=== PATIENT | female | born 1940 | race Caucasian/White ===

== ENCOUNTER → 2016-08-03 | Outpatient (CLI) | payer MEDICARE, BC ==
--- NOTE | 2016-08-03 13:42 | KCIC ---
Left lower extremity venous doppler ultrasound Indication: Left calf pain. . Technique: Color Doppler, grayscale, duplex, spectral waveform analysis is used to evaluate the lower extremity deep venous system, including the common femoral vein, superficial femoral vein, popliteal vein, tibioperoneal trunk and calf veins. Findings: No evidence of deep venous thrombosis. Normal response to augmentation, normal compressibility and normal phasicity is demonstrated. Impression: Negative for deep venous thrombosis Electronically signed by: Víctor Mejia MD (08/03/2016 1:39 PM)
== END | disposition home or self-care (01) ==
LOC: KCIC US 12:49
PROVIDERS: ATTEND Emergency Medicine
DX: M79.605 Pain in left leg (principal); M79.89 Other specified soft tissue disorders
CPT/HCPCS: 93971

== ENCOUNTER 2019-03-17 15:18 | Emergency (ER) | payer MEDICARE, BC ==
[~2019-03-17] VITALS: Ht 160 cm; Wt 98.0 kg
[2019-03-17] MEDS ORDERED: DICYCLOMINE HCL 10 MG CAPSULE PO STA (15:38)
--- NOTE | 2019-03-17 15:41 | PHYS DOC ---
Adult General Chief Complaint Chief Complaint: ABDOMINAL PAIN HPI HPI Patient is a 78 year old female who presents with vomiting, nausea, diarrhea this been ongoing since 1:30 AM. The patient states that she's not had an appetite all day long. The patient's last night for dinner that she had beef stew. The patient states everybody had this stew got sick. She also states she has associated symptoms include abdominal cramping. The patient rates her pain 5 out of 10 in severity and sharp. Denies any other complaints. Complete ROS were reviewed and found to be within normal limits, except as documented in the HPI Current Medications Current Medications Current Medications Medications (Trade) Dose Ordered Sig/Odilon Start Time Stop Time Status Last Admin Dose Admin Dicyclomine HCl (Bentyl) 10 mg 1X STAT 03/17/19 15:38 03/17/19 15:46 DC 03/17/19 16:37 10 MG Ondansetron HCl (Zofran) 4 mg 1X ONCE 03/17/19 15:45 03/17/19 15:46 DC 03/17/19 16:36 4 MG Sodium Chloride 1,000 ml @ 1,000 mls/hr 1X ONCE 03/17/19 15:45 03/17/19 16:44 DC 03/17/19 16:37 1,000 MLS/HR Allergies Allergies Allergies Coded Allergies Type Severity Reaction Last Updated Verified Penicillins Allergy Unknown 03/17/19 Yes hydrocodone Allergy Unknown 03/17/19 Yes Physical Exam Physical Exam Constitutional: Well developed, well nourished, no acute distress, non-toxic appearance. [] HENT: Normocephalic, atraumatic, bilateral external ears normal, oropharynx moist, no oral exudates, nose normal. [] Eyes: PERRLA, EOMI, conjunctiva normal, no discharge. [] Neck: Normal range of motion, no tenderness, supple, no stridor. [] Cardiovascular:Heart rate regular rhythm, no murmur [] Lungs & Thorax: Bilateral breath sounds clear to auscultation [] Abdomen: Bowel sounds normal, soft, no tenderness, no masses, no pulsatile masses. [] Skin: Warm, dry, no erythema, no rash. [] Neurologic: Alert and oriented X 3, normal motor function, normal sensory function, no focal deficits noted. [] Psychologic: Affect normal, judgement normal, mood normal. [] Current Patient Data Vital Signs Vital Signs Date Time Temp Pulse Resp B/P (MAP) Pulse Ox O2 Delivery O2 Flow Rate FiO2 03/17/19 17:53 66 24 139/84 (102) Room Air 03/17/19 17:33 98 03/17/19 15:30 98.7 98.7 Lab Values Laboratory Tests Test 03/17/19 15:35 White Blood Count 8.0 x10^3/uL (4.0-11.0) Red Blood Count 4.18 x10^6/uL (3.50-5.40) Hemoglobin 13.3 g/dL (12.0-15.5) Hematocrit 39.3 % (36.0-47.0) Mean Corpuscular Volume 94 fL (79-100) Mean Corpuscular Hemoglobin 32 pg (25-35) Mean Corpuscular Hemoglobin Concent 34 g/dL (31-37) Red Cell Distribution Width 12.9 % (11.5-14.5) Platelet Count 154 x10^3/uL (140-400) Neutrophils (%) (Auto) 85 % (31-73) H Lymphocytes (%) (Auto) 7 % (24-48) L Monocytes (%) (Auto) 6 % (0-9) Eosinophils (%) (Auto) 1 % (0-3) Basophils (%) (Auto) 0 % (0-3) Neutrophils # (Auto) 6.8 x10^3/uL (1.8-7.7) Lymphocytes # (Auto) 0.5 x10^3/uL (1.0-4.8) L Monocytes # (Auto) 0.5 x10^3/uL (0.0-1.1) Eosinophils # (Auto) 0.1 x10^3/uL (0.0-0.7) Basophils # (Auto) 0.0 x10^3/uL (0.0-0.2) Segmented Neutrophils % 72 % (35-66) H Band Neutrophils % 11 % (0-9) H Lymphocytes % 11 % (24-48) L Monocytes % 5 % (0-10) Eosinophils % 1 % (0-5) Platelet Estimate Adequate (ADEQUATE) Sodium Level 141 mmol/L (136-145) Potassium Level 4.1 mmol/L (3.5-5.1) Chloride Level 106 mmol/L (98-107) Carbon Dioxide Level 23 mmol/L (21-32) Anion Gap 12 (6-14) Blood Urea Nitrogen 29 mg/dL (7-20) H Creatinine 0.9 mg/dL (0.6-1.0) Estimated GFR (Cockcroft-Gault) 60.9 BUN/Creatinine Ratio 32 (6-20) H Glucose Level 124 mg/dL (70-99) H Calcium Level 8.6 mg/dL (8.5-10.1) Total Bilirubin 0.5 mg/dL (0.2-1.0) Aspartate Amino Transferase (AST) 21 U/L (15-37) Alanine Aminotransferase (ALT) 19 U/L (14-59) Alkaline Phosphatase 72 U/L (46-116) Total Protein 7.6 g/dL (6.4-8.2) Albumin 3.9 g/dL (3.4-5.0) Albumin/Globulin Ratio 1.1 (1.0-1.7) Laboratory Tests 03/17/19 15:35 Laboratory Tests 03/17/19 15:35 EKG EKG [] Radiology/Procedures Radiology/Procedures [] Course & Med Decision Making Course & Med Decision Making Pertinent Labs and Imaging studies reviewed. (See chart for details) Will get labs, and give supportive care. Labs were unremarkable. Patient appears to have food poisoning. Patient feels better after fluids and nausea medications. Will d/c home. Dragon Disclaimer Dragon Disclaimer This electronic medical record was generated, in whole or in part, using a voice recognition dictation system. Departure Departure Impression: Primary Impression: Nausea & vomiting Additional Impression: Diarrhea Disposition: HOME, SELF-CARE Condition: STABLE Referrals: UNKNOWN PCP NAME (PCP) Patient Instructions: Food Poisoning Additional Instructions: Thank you for visiting [facility]. We appreciate you trusting us with your care. If any additional problems come up don't hesitate to return to visit us. Please follow up with your primary care provider so they can plan additional care if needed and know about the problem that you had. If symptoms worsen come back to the Emergency Department. Any concerning symptoms that start such as chest pain, shortness of air, weakness or numbness on one side of the body, running high fevers or any other concerning symptoms return to the ER. Please fill your medications at any pharmacy and follow the prescription instructions. Scripts Dicyclomine Hcl (DICYCLOMINE HCL) 10 Mg Capsule 1 CAP PO PRN Q6HRS PRN for PAIN, #20 CAP 0 Refills Prov: LORENE BAUTISTA APRN 03/17/19 Ondansetron (ONDANSETRON ODT) 4 Mg Tab.rapdis 1 TAB PO PRN Q6-8HRS PRN for NAUSEA, #20 TAB Prov: LORENE BAUTISTA APRN 03/17/19 Problem Qualifiers Primary Impression: Nausea & vomiting Vomiting type: unspecified Vomiting Intractability: unspecified Qualified Codes: R11.2 - Nausea with vomiting, unspecified Additional Impression: Diarrhea Diarrhea type: unspecified type Qualified Codes: R19.7 - Diarrhea, unspecified LORENE BAUTISTA APRN Mar 17, 2019 15:40
[2019-03-17] MEDS ORDERED: IV NORMAL SALINE 1000ML BAG 1,000 ML IV ONE (15:45)
[2019-03-17] MEDS ORDERED: ONDANSETRON PF 4 MG/2 ML VIAL. IV ONE (15:45)
[2019-03-17 15:46] LABS: BASO % 0 % (0-3); EOS # 0.1 x10^3/uL (0.0-0.7); EOS % 1 % (0-3); HEMATOCRIT 39.3 % (36.0-47.0); HEMOGLOBIN 13.3 g/dL (12.0-15.5); LYMPH # 0.5 x10^3/uL (1.0-4.8); LYMPH % 7 % (24-48); MEAN CORPUSCULAR HEMOGLOBIN 32 pg (25-35); MEAN CORPUSCULAR HGB CONC 34 g/dL (31-37); MEAN CORPUSCULAR VOLUME 94 fL (79-100); MONO # 0.5 x10^3/uL (0.0-1.1); MONO % 6 % (0-9); NEUT # 6.8 x10^3/uL (1.8-7.7); NEUT % 85 % (31-73); PLATELET COUNT 154 x10^3/uL (140-400); RED BLOOD COUNT 4.18 x10^6/uL (3.50-5.40); RED CELL DISTRIBUTION WIDTH 12.9 % (11.5-14.5)
[2019-03-17 16:18] LABS: % BANDS 11 % (0-9); % EOS 1 % (0-5); % LYMPHS 11 % (24-48); % MONOS 5 % (0-10); % SEGS 72 % (35-66); PLT ESTIMATE ADEQUATE (ADEQUATE)
[2019-03-17 16:22] LABS: CALCIUM 8.6 mg/dL (8.5-10.1); CREATININE 0.9 mg/dL (0.6-1.0); GFR 60.9; POTASSIUM 4.1 mmol/L (3.5-5.1)
[2019-03-17 16:32] LABS: ALBUMIN 3.9 g/dL (3.4-5.0); ALBUMIN/GLOBULIN RATIO 1.1 (1.0-1.7); TOTAL BILIRUBIN 0.5 mg/dL (0.2-1.0); TOTAL PROTEIN 7.6 g/dL (6.4-8.2)
[2019-03-17] MEDS ORDERED: ONDA4TAB12 PO (16:39)
[2019-03-17] MEDS ORDERED: DICY10CA3 PO (16:39)
[2019-03-17 17:53] VITALS: BP 139/84
== END 2019-03-17 17:55 | disposition home or self-care (01) ==
LOC: ER 15:18
DX: R11.2 Nausea with vomiting, unspecified (principal); R19.7 Diarrhea, unspecified; R10.9 Unspecified abdominal pain; Z88.0 Allergy status to penicillin; Z88.5 Allergy status to narcotic agent
CPT/HCPCS: 36415; 80053; 85007; 85025; 96361; 96374; 99284; J2405; J7030

== ENCOUNTER → 2019-10-12 | Outpatient (CLI) | payer MEDICARE, BC ==
[~2019-10-12] MED LIST: DICY10CA3 PO; ONDA4TAB12 PO
--- NOTE | 2019-10-12 14:00 | KCIC ---
INDICATION: Reason: Left Calf pain and Swelling / Spl. Instructions: / History: COMPARISON: July 2016 TECHNIQUE: Grayscale, color and doppler ultrasound images were obtained of the left lower extremity venous vasculature. LEFT: No thrombus identified in the common femoral vein, femoral vein, popliteal vein or visualized calf veins. IMPRESSION: * No thrombus identified in deep venous system of the left lower extremity. Electronically signed by: Ishan Hankins MD (10/12/2019 1:57 PM) [id number]
== END ==
LOC: KCIC US 12:50
PROVIDERS: ATTEND Nurse Practitioner Family
DX: M79.662 Pain in left lower leg (principal); R60.9 Edema, unspecified
CPT/HCPCS: 93971

== ENCOUNTER → 2020-10-28 | Outpatient (CLI) | payer MEDICARE, BC ==
--- NOTE | 2020-10-28 15:39 | KCIC ---
Study: MRI left ankle without contrast INDICATION: Left ankle pain. No reported injury. COMPARISON: None. TECHNIQUE: Multiplanar MR imaging of the left ankle performed without the use of intravenous or intra -articular contrast. FINDINGS: Bones/cartilage: No acute osseous abnormality. Scattered degenerative changes with subchondral edema/ cystic change mainly at the third through fifth tarsometatarsal joints and calcaneocuboid joint. Ther e is likely a few areas of superficial chondrosis at the ankle without a large full-thickness defect. Mild degenerative changes at the posterior subtalar joint. Enthesophyte formation at the Achilles in sertion and a small plantar calcaneal spur. Ligaments: Intact distal syndesmosis. Thin but intact ATFL. The CFL and PTFL are intact. Within aureliano l limits deltoid ligament complex and spring ligament. The partially assessed Lisfranc ligament compl ex is unremarkable. Musculotendinous: The peroneal and flexor tendons are intact and normally located. Small volume tendo n sheath fluid at the knot of Marcos. No significant Achilles tendinosis or a focal tear. Unremarkable extensors. Within normal limits bulk of the intrinsic foot musculature. Favored artifactual minimal T2 signal elevation of the abductor hallucis muscle. Sinus Tarsi: Mostly maintained fatty signal. Tarsal tunnel: No space-occupying mass or accessory muscle. Plantar fascia: Within normal limits. Miscellaneous: Small amount of ankle joint fluid which is incontinuity with the flexor hallucis longu s tendon sheath. Small amount of talonavicular joint fluid as well. Trace fluid within the retrocalca nella bursa. Mildly edematous Kager fat pad and subcutaneous tissues at the lower leg/ankle. IMPRESSION: 1. No acute osseous abnormality. Scattered arthrosis which is mild to moderate in severity at the th ird through fifth tarsometatarsal joints and mild at the calcaneocuboid and posterior subtalar joints . Superficial chondrosis at the ankle without a full-thickness defect. 2. No tendon tear or advanced tendinosis. Small volume tendon sheath fluid at a few locations but wi thout overt tenosynovitis. 3. Small ankle joint effusion could be degenerative in etiology. Mild nonspecific soft tissue edema at the lower leg/ankle to include Kager's fat pad. Electronically signed by: ERMELINDA CABRAL MD (10/28/2020 3:37 PM) [id number]
== END ==
LOC: KCIC MRI 10:52
PROVIDERS: ATTEND Nurse Practitioner
DX: M77.32 Calcaneal spur, left foot (principal); M25.472 Effusion, left ankle
CPT/HCPCS: 73721